=== PATIENT | male | born 1995 | race Hispanic/Latino ===

== ENCOUNTER 2018-10-01 10:28 | Emergency (ER) | payer OTHER ==
[~2018-10-01] VITALS: Ht 172.7 cm; Wt 79.1 kg
[2018-10-01] MEDS ORDERED: AMOX500C PO (10:54)
[2018-10-01 11:14] LABS: INFLUENZA A AMPLIFICATION NEGATIVE (NEGATIVE); INFLUENZA B AMPLIFICATION NEGATIVE (NEGATIVE)
[2018-10-01 11:32] VITALS: BP 129/79
== END 2018-10-01 11:38 | disposition home or self-care (01) ==
LOC: M ED 10:28
DX: J01.90 Acute sinusitis, unspecified (principal)

== ENCOUNTER 2019-02-22 20:47 | Inpatient (IN) | payer OTHER ==
[~2019-02-22] VITALS: Ht 172.7 cm; Wt 83.9 kg
[~2019-02-22 20:47] MED LIST: AMOX500C PO
[2019-02-22 21:53] LABS: HEMATOCRIT 41.3 % (42.0-52.0); HEMOGLOBIN 14.2 g/dl (13.5-17.5); MEAN CORPUSCULAR HEMOGLOBIN 29.6 pg (27.0-33.0); MEAN CORPUSCULAR HGB CONC 34.4 g/dl (32.0-36.5); PLATELET COUNT, AUTOMATED 300 10^3/uL (150-450); WHITE BLOOD COUNT 7.5 10^3/uL (4.0-10.0)
[2019-02-22 22:05] LABS: AMPHETAMINES LEVEL URINE NEGATIVE (NEGATIVE); BARBITURATES URINE NEGATIVE (NEGATIVE); BENZODIAZEPINES URINE NEGATIVE (NEGATIVE); CANNABINOIDS URINE NEGATIVE (NEGATIVE); COCAINE METABOLITE URINE NEGATIVE (NEGATIVE); METHADONE URINE NEGATIVE (NEGATIVE); OPIATES URINE NEGATIVE (NEGATIVE); PHENCYCLIDINE URINE NEGATIVE (NEGATIVE)
[2019-02-22 22:19] LABS: ACETAMINOPHEN LEVEL < 2.0 UG/ML (10.0-30.0); ALBUMIN 4.1 GM/DL (3.2-5.2); ALT/SGPT 24 U/L (12-78); BILIRUBIN,DIRECT < 0.1 MG/DL (0.0-0.2); BILIRUBIN,TOTAL 0.2 MG/DL (0.2-1.0); BLOOD UREA NITROGEN 18 MG/DL (7-18); CALCIUM LEVEL 8.7 MG/DL (8.5-10.1); CARBON DIOXIDE LEVEL 30 MEQ/L (21-32); CHLORIDE LEVEL 105 MEQ/L (98-107); CREATININE FOR GFR 0.96 MG/DL (0.70-1.30); ETHYL ALCOHOL (ETHANOL) < 0.003 % (0.000-0.010); GLOMERULAR FILTRATION RATE > 60.0 (>60); GLUCOSE, FASTING 94 MG/DL (70-100); POTASSIUM SERUM 3.9 MEQ/L (3.5-5.1); SALICYLATE LEVEL < 1.7 MG/DL (5.0-30.0); SODIUM LEVEL 142 MEQ/L (136-145); TOTAL PROTEIN 8.3 GM/DL (6.4-8.2)
[2019-02-22] MEDS ORDERED: ADVI200C3 PO (22:27)
[2019-02-22] MEDS ORDERED: IBUP200C29 PO (22:27)
[2019-02-22] MEDS ORDERED: MAALOX 30 ML SUSP *UDC PO PRN (23:00)
[2019-02-22] MEDS ORDERED: OLANZapine ORAL DISINTEGRATING TAB 5MG PO PRN (23:00)
[2019-02-22] MEDS ORDERED: traZODone 50 MG TAB PO ONE (23:00)
[2019-02-22] MEDS ORDERED: OLANZapine ORAL DISINTEGRATING TAB 5MG PO ONE (23:00)
[2019-02-22] MEDS ORDERED: MOM 30ML SUSPENSION UDC PO PRN (23:00)
[2019-02-22] MEDS ORDERED: ACETAMINOPHEN TAB 650MG DOSE (2X325MG) PO PRN (23:00)
[2019-02-23 00:17] VITALS: BP 134/78
[2019-02-23 06:45] VITALS: BP 125/80
--- NOTE | 2019-02-23 15:32 | HPEPDOC ---
General Date of Admission Feb 22, 2019 at 22:50 Date of Service: Feb 23, 2019 Chief Complaint The patient is a 23-year-old male admitted with a reason for visit of Unspecified Mood D/O. History of Present Illness 23 yo M with no known PMH was brought in to the psychiatry unit for mood disorder. He wanted to kill himself by driving a car and hit another car. Currently, he does not have any physical or medical complaints. Per patient, he does not have any medical or surgical history except for a minor eye procedure. Home Medications Scheduled PRN Ibuprofen (Ibuprofen) 200 Mg Capsule, 400 MG PO Q6H PRN for PAIN, (Reported) Ibuprofen (Advil Migraine) 200 Mg Capsule, 400 MG PO DAILY PRN for MIGRAINE, (Reported) Allergies Coded Allergies: No Known Allergies (Unverified , 07/19/17) Past Medical History Medical History none Surgical History eye vision correction Family History Mother depression No other significant family history Social History * Smoker: Denies Alcohol: Denies Drugs: denies see above A-FIB/CHADSVASC A-FIB History Current/History of A-Fib/PAF?: No Review of Systems Constitutional: Denies: Chills, Fever, Malaise, Night Sweats, Weakness, Fatigue, Weight Loss, Lethargy, Other Eyes: Denies: Pain, Vision change, Conjunctivae inflammation, Eyelid inflammation, Redness, Other ENT: Denies: Head Aches, Ear Pain, Dysphagia, Sinus Congestion, Post Nasal Drip , Sore Throat, Epistaxis, Other Symptoms Skin: Denies: Rash, Lesions, Jaundice, Bruising, Itching, Dry, Breakdown, Nail Changes, Other Pulmonary: Denies: Dyspnea, Cough, Pleuritic Chest Pain, Other Symptoms Cardiovascular: Denies: Chest Pain, Palpitations, Orthopnea, Paroxysmal Noc. Dyspnea, Edema, Lt Headedness, Other Symptoms Gastrointestinal: Denies: Nausea, Vomiting, Abdominal Pain, Diarrhea, Constipation, Melena, Hematochezia, Other Symptoms Genitourinary: Denies: Dysuria, Frequency, Incontinence, Hematuria, Retention, Other Symptoms Hematologic: Denies: Bruising, Bleeding Excessively, Petecchia, Purpura, Enlarged Lymph Nodes, Other Hematologic Endocrine: Denies: Polydipsia, Polyphagia, Polyuria, Heat Intolerance, Cold Intolerance, Other Endocrine Sx Musculoskeletal: Denies: Neck Pain, Back Pain, Shoulder Pain, Arm Pain, Hand Pain, Leg Pain, Foot Pain, Joint Pain, Muscle Pain, Spasms, Other Symptoms Neurological: Denies: Weakness, Numbness, Incoordination, Change in speech, Confusion, Seizures, Other Symptoms Physical Examination General Exam: Positive: Alert, Cooperative Eye Exam: Positive: PERRLA ENT Exam: Positive: Atraumatic, Mucous membr. moist/pink Chest Exam: Positive: Clear to auscultation Heart Exam: Positive: Rate Normal Abdomen Exam: Positive: Normal bowel sounds Extremity Exam: Positive: Other (no edema) Skin Exam: Positive: Nl turgor and temperature Neuro Exam: Positive: Normal Gait Psych Exam: Positive: Mood NL Vital Signs Vital Signs Date Time Temp Pulse Resp B/P (MAP) Pulse Ox O2 Delivery O2 Flow Rate FiO2 02/23/19 06:45 98.3 72 14 125/80 (95) 02/23/19 00:17 97 Laboratory Data Labs 24H Laboratory Tests 2 02/22/19 21:15: Nucleated Red Blood Cells % (auto) 0.0, Anion Gap 7L, Glomerular Filtration Rate > 60.0, Calcium Level 8.7, Aspartate Amino Transf (AST/SGOT) 32, Alanine Aminotransferase (ALT/SGPT) 24, Alkaline Phosphatase 69, Total Bilirubin 0.2, Direct Bilirubin < 0.1, Total Protein 8.3H, Albumin 4.1, Albumin/Globulin Ratio 0.98L, Thyroid Stimulating Hormone (TSH) 2.290, Salicylates Level < 1.7L, Urine Amphetamines Screen NEGATIVE, Urine Benzodiazepines Screen NEGATIVE, Urine Opiates Screen NEGATIVE, Urine Methadone Screen NEGATIVE, Acetaminophen Level < 2.0L, Urine Barbiturates Screen NEGATIVE, Urine Phencyclidine Screen NEGATIVE, Urine Cocaine Metabolite Screen NEGATIVE, Urine Cannabinoids Screen NEGATIVE, Ethyl Alcohol Level < 0.003 CBC/BMP Laboratory Tests 02/22/19 21:15 Red Blood Count 4.80, Mean Corpuscular Volume 86.0, Mean Corpuscular Hemoglobin 29.6, Mean Corpuscular Hemoglobin Concent 34.4, Red Cell Distribution Width 11.7 Problems (1) At risk for danger to others Status: Acute Problem Text: The patient has no active medical issues. Vital signs are stable. I do not see lab abnormalities. I do not see any contraindication to the patient being hospitalized in the mental health unit. The psychiatry team will manage his psychiatric disorder. (2) Poor impulse control Status: Acute Plan / VTE VTE Prophylaxis Ordered?: LINDA Obando MD Feb 23, 2019 15:32
[2019-02-23 18:03] VITALS: BP 128/61
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
[2019-02-23] MEDS: SERTRALINE HCL 50 MG TAB PO SCH (20:28)
[2019-02-24 06:44] VITALS: BP 153/65
[2019-02-24] MEDS: SERTRALINE HCL 50 MG TAB PO SCH (08:31)
[2019-02-24 18:04] VITALS: BP 148/79
[2019-02-24] MEDS: traZODone 50 MG TAB PO PRN (20:33)
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
[2019-02-25 06:38] VITALS: BP 140/79
[2019-02-25] MEDS: SERTRALINE HCL 50 MG TAB PO SCH (08:16)
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
[2019-02-25 18:00] VITALS: BP 132/70
[2019-02-25] MEDS: traZODone 50 MG TAB PO PRN (21:22)
[2019-02-26 06:32] VITALS: BP 128/76
[2019-02-26] MEDS: SERTRALINE HCL 50 MG TAB PO SCH (08:39)
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
[2019-02-26] MEDS ORDERED: traZODone 100 MG TAB PO PRN (10:00)
[2019-02-26 18:00] VITALS: BP 138/88
[2019-02-27 06:38] VITALS: BP 105/70
[2019-02-27] MEDS ORDERED: TRAZ10TA PO (08:35)
[2019-02-27] MEDS ORDERED: SERT-155 PO (08:35)
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
[2019-02-27] MEDS: SERTRALINE HCL 50 MG TAB PO SCH (08:36)
== END 2019-02-27 10:20 | disposition home or self-care (01) | DRG 885 ==
LOC: M ED 20:47 → M ED INP 22:50 → M PSY 02-23 00:04
PROVIDERS: ADMIT Psychiatry & Neurology Psychiatry; ATTEND Psychiatry & Neurology Psychiatry
DX: F39 Unspecified mood [affective] disorder (principal); F41.1 Generalized anxiety disorder

== ENCOUNTER 2019-06-19 06:44 | Emergency (ER) | payer OTHER ==
[~2019-06-19] VITALS: Ht 172.7 cm; Wt 85.5 kg
[~2019-06-19 06:44] MED LIST changes: +ADVI200C3 PO; +IBUP200C29 PO; +SERT50TA29 PO; +TRAZ10TA PO
[2019-06-19] MEDS ORDERED: LUNE2TAB23 PO (06:54)
[2019-06-19] MEDS ORDERED: IBUP80TA PO (08:28)
[2019-06-19 09:00] VITALS: BP 137/80
--- NOTE | 2019-06-19 10:35 | REP ---
Right knee series: Five views. History: Pain after extension. Findings: Five views of the right knee demonstrate normal bones, joints, and soft tissues. There is no evidence of joint effusion. No fracture is seen. Impression: Normal radiographs of the right knee. Electronically Signed by Fredis Frankel MD 06/19/2019 07:53 A
== END 2019-06-19 09:25 | disposition home or self-care (01) ==
LOC: M ED 06:44
DX: M76.31 Iliotibial band syndrome, right leg (principal); M94.261 Chondromalacia, right knee; G47.00 Insomnia, unspecified; F32.9 Major depressive disorder, single episode, unspecified; Z98.890 Other specified postprocedural states; Z79.899 Other long term (current) drug therapy

== ENCOUNTER 2020-06-16 19:37 | Emergency (ER) | payer OTHER ==
[~2020-06-16] VITALS: Ht 172.7 cm; Wt 88.6 kg
[~2020-06-16 19:37] MED LIST changes: +IBUP80TA PO; +LUNE2TAB23 PO; -TRAZ10TA PO; +TRAZ1TAB12 PO
[2020-06-16] MEDS ORDERED: BACTRIM 160MG/800MG DS TAB PO ONE (21:45)
[2020-06-16] MEDS ORDERED: BACT800T5 PO (21:48)
[2020-06-16 21:53] VITALS: BP 142/83
== END 2020-06-16 21:58 | disposition home or self-care (01) ==
LOC: M ED 19:37
DX: L03.116 Cellulitis of left lower limb (principal); G43.909 Migraine, unspecified, not intractable, without status migrainosus

== ENCOUNTER 2020-12-05 09:38 | Emergency (ER) | payer OTHER ==
[~2020-12-05] VITALS: Ht 172.7 cm; Wt 86.7 kg
[~2020-12-05 09:38] MED LIST changes: +BACT800T5 PO
[2020-12-05 11:00] LABS: BASO % 0.6 % (0.0-1.0); EOS # 0.1 10^3/uL (0.0-0.5); HEMATOCRIT 43.3 % (42.0-52.0); HEMOGLOBIN 14.8 g/dl (13.5-17.5); LYMPH # 1.7 10^3/uL (1.5-5.0); LYMPH % 24.6 % (24.0-44.0); MEAN CORPUSCULAR HGB CONC 34.2 g/dl (32.0-36.5); MEAN CORPUSCULAR VOLUME 87.7 fl (80.0-96.0); MONO # 0.6 10^3/uL (0.0-0.8); MONO % 8.7 % (2.0-8.0); NEUTROPHILS # 4.6 10^3/uL (1.5-8.5); NEUTROPHILS % 64.8 % (36.0-66.0); PLATELET COUNT, AUTOMATED 293 10^3/uL (150-450); RED BLOOD COUNT 4.94 10^6/uL (4.30-6.10)
[2020-12-05 11:34] LABS: ALBUMIN 4.1 GM/DL (3.2-5.2); ALT/SGPT 23 U/L (12-78); BILIRUBIN,DIRECT 0.1 MG/DL (0.0-0.2); BILIRUBIN,TOTAL 0.5 MG/DL (0.2-1.0); LIPASE 58 U/L (73-393)
[2020-12-05] MEDS ORDERED: ONDANSETRON 4MG/2ML VIAL IV ONE (11:45)
[2020-12-05] MEDS ORDERED: DICYCLOMINE 10 MG CAP PO ONE (11:45)
[2020-12-05 12:15] LABS: C REACTIVE PROTEIN QUANTITATIV < 0.30 MG/DL (0.00-0.30)
[2020-12-05 12:34] LABS: ERYTHROCYTE SEDIMENTATION RATE 13 mm/hr (0-15)
[2020-12-05] MEDS ORDERED: ONDA4TAB6 PO (13:01)
[2020-12-05] MEDS ORDERED: DICY1CAP8 PO (13:01)
[2020-12-05 13:20] VITALS: BP 124/79
== END 2020-12-05 13:24 | disposition home or self-care (01) ==
LOC: M ED 09:38
DX: K62.5 Hemorrhage of anus and rectum (principal); K52.9 Noninfective gastroenteritis and colitis, unspecified; G43.909 Migraine, unspecified, not intractable, without status migrainosus; K21.9 Gastro-esophageal reflux disease without esophagitis; F41.9 Anxiety disorder, unspecified; F17.200 Nicotine dependence, unspecified, uncomplicated
CPT/HCPCS: 80047; 80076; 81001; 83690; 85025; 85652; 86140; 96374; 99284; J2405

== ENCOUNTER 2021-01-06 08:54 | Day surgery (SDC) | payer OTHER ==
[~2021-01-06] VITALS: Ht 172.7 cm; Wt 86.6 kg
[~2021-01-06 08:54] MED LIST changes: +DICY1CAP8 PO; +NS 1,000 ML IV ONE; +ONDA4TAB6 PO
[2021-01-06] MEDS ORDERED: fentaNYL 100 MCG/2 ML INJECTION (J3010) As Ordered ONE (09:15)
[2021-01-06] MEDS ORDERED: LIDOCAINE 2% 100MG/5ML SDV (FOR ANES.) As Ordered ONE (09:18)
[2021-01-06] MEDS ORDERED: propofoL 200 MG/20 ML VIAL As Ordered ONE ×3 (09:59→10:09)
--- NOTE | 2021-01-06 10:15 | ROOR ---
Patient Name: Lauri Christianson Procedure Date: 01/06/2021 10:01 AM Date of : 1995 Age: 25 Room: [facility] Gender: Male Note Status: Finalized Procedure: Upper Endoscopy + Biopsies Indications: Heartburn, Exclusion of Chu's esophagus Providers: Rivera Torre MD Referring MD: DEYVI ZAPIEN MD Requesting Provider: Medicines: Monitored Anesthesia Care Complications: No immediate complications. Procedure: Pre-Anesthesia Assessment: - The heart rate, respiratory rate, oxygen saturations, blood pressure, adequacy of pulmonary ventilation, and response to care were monitored throughout the procedure. The Endoscope was introduced through the mouth, and advanced to the second part of duodenum. The upper GI endoscopy was accomplished without difficulty. The patient tolerated the procedure well. Findings: The Z-line was variable and was found 42 cm from the incisors. Multiple biopsies were obtained with cold forceps for evaluation to rule out Chu's Esophagus randomly at the gastroesophageal junction. Esophagitis with no bleeding was found 42 cm from the incisors. No other significant abnormalities were identified in a careful examination of the stomach. The exam of the duodenum was otherwise normal. Impression: - Z-line variable, 42 cm from the incisors. - Reflux esophagitis. Rule out Chu's esophagus. - Multiple biopsies were obtained at the gastroesophageal junction. - The examination was otherwise normal. Recommendation: - Patient has a contact number available for emergencies. The signs and symptoms of potential delayed complications were discussed with the patient. Return to normal activities tomorrow. Written discharge instructions were provided to the patient. - Discharge patient to home. - Follow an antireflux regimen. - Continue present medications. - Await pathology results. - Telephone GI clinic for pathology results in 1 week. - Return to referring physician. - The findings and recommendations were discussed with the patient. Procedure Code(s): --- Professional --- 52454, Esophagogastroduodenoscopy, flexible, transoral; with biopsy, single or multiple Diagnosis Code(s): --- Professional --- K22.8, Other specified diseases of esophagus K21.0, Gastro-esophageal reflux disease with esophagitis R12, Heartburn CPT copyright 2019 [employer]. All rights reserved. The codes documented in this report are preliminary and upon inspector motor vehicles review may be revised to meet current compliance requirements. Rivera Torre MD Rivera Torre MD 01/06/2021 10:14:51 AM Electronically signed by Rivera Torre MD Number of Addenda: 0 Note Initiated On: 01/06/2021 10:01 AM Estimated Blood Loss: Estimated blood loss: none.
--- NOTE | 2021-01-06 10:28 | ROOR ---
Patient Name: Lauri Christianson Procedure Date: 01/06/2021 10:02 AM Date of : 1995 Age: 25 Room: [facility] Gender: Male Note Status: Finalized Procedure: Total Colonoscopy to Cecum Indications: Rectal bleeding Providers: Rivera Torre MD Referring MD: DEYVI ZAPIEN MD Requesting Provider: Medicines: Monitored Anesthesia Care Complications: No immediate complications. Procedure: Pre-Anesthesia Assessment: - The heart rate, respiratory rate, oxygen saturations, blood pressure, adequacy of pulmonary ventilation, and response to care were monitored throughout the procedure. The Colonoscope was introduced through the anus and advanced to the cecum, identified by appendiceal orifice and ileocecal valve. The colonoscopy was performed without difficulty. The patient tolerated the procedure well. The quality of the bowel preparation was excellent. Findings: The perianal and digital rectal examinations were normal. Non-bleeding internal hemorrhoids were found during retroflexion. The hemorrhoids were small and Grade I (internal hemorrhoids that do not prolapse). No other significant abnormalities were identified in a careful examination of the remainder of the colon. The exam was otherwise without abnormality. Impression: - Non-bleeding internal hemorrhoids. - The examination was otherwise normal. - No specimens collected. - The exam was otherwise normal to the cecum. Recommendation: - Patient has a contact number available for emergencies. The signs and symptoms of potential delayed complications were discussed with the patient. Return to normal activities tomorrow. Written discharge instructions were provided to the patient. - High fiber diet. - Discharge patient to home. - Continue present medications. - Repeat colonoscopy at age 48 for screening purposes. - Return to referring physician. - The findings and recommendations were discussed with the patient. Procedure Code(s): --- Professional --- 38120, Colonoscopy, flexible; diagnostic, including collection of specimen(s) by brushing or washing, when performed (separate procedure) Diagnosis Code(s): --- Professional --- K64.0, First degree hemorrhoids K62.5, Hemorrhage of anus and rectum CPT copyright 2019 [employer]. All rights reserved. The codes documented in this report are preliminary and upon big data platform architect review may be revised to meet current compliance requirements. Rivera Torre MD Rivera Torre MD 01/06/2021 10:27:38 AM Electronically signed by Rivera Torre MD Number of Addenda: 0 Note Initiated On: 01/06/2021 10:02 AM Estimated Blood Loss: Estimated blood loss: none.
[2021-01-06 10:50] VITALS: BP 136/79
== END 2021-01-06 10:59 | disposition home or self-care (01) ==
LOC: M OPP 08:54
PROVIDERS: ATTEND Internal Medicine Gastroenterology
DX: K62.5 Hemorrhage of anus and rectum (principal); K64.0 First degree hemorrhoids; K22.8 Other specified diseases of esophagus; K21.00 Gastro-esophageal reflux disease with esophagitis, without bleeding; R12 Heartburn; F17.210 Nicotine dependence, cigarettes, uncomplicated
CPT/HCPCS: 43239; 45378; 88305; J3010

== ENCOUNTER → 2021-01-27 | Outpatient (CLI) | payer SELFPAY ==
[~2021-01-27] MED LIST changes: -NS 1,000 ML IV ONE
== END ==
LOC: M LABSMTC 10:13
PROVIDERS: ATTEND Pediatrics
DX: Z11.52 Encounter for screening for COVID-19 (principal)